=== PATIENT | female | born 1940 | race Caucasian/White ===

== ENCOUNTER 2024-05-06 08:12 | Inpatient (IN) | payer MEDICARE, BC, SELFPAY ==
[2024-05-06] VITALS (141 sets, daily range): BP systolic 56–235; BP diastolic 39–140; PULSE 61–147; RESP 11–45; TEMP 36.5–37.1; O2SAT 88–100
--- NOTE | 2024-05-06 08:17 | ECG_ITS ---
[facility] Date: 2024-05-06 Pat Name: Jennifer Shepard Department: Room: Gender: Female Consumer Analyst: : 1940 Requested By: Foreign Dean Order Number: [id number] Nicky MD: Mikie Mak M.D. Measurements Intervals [place] Rate: 138 P: 0 VT: 0 QRS: -12 QRSD: 83 T: 79 QT: 273 QTc: 415 Interpretive Statements ATRIAL FIBRILLATION WITH RAPID VENTRICULAR RESPONSE MODERATE ST DEPRESSION [0.05+ mV ST DEPRESSION] Compared to ECG 11/09/2017 13:33:48 ST (T wave) deviation now present Ectopic atrial tachycardia, multifocal no longer present Indeterminate axis no longer present Electronically Signed On 05-11-2024 18:17:57 LENS CEMENTER by Mikie Mak M.D. [id number]
--- NOTE | 2024-05-06 08:17 | XR_ITS ---
WS: [id number] XR chest 1V portable [id number] REASON FOR EXAM: dyspnea/cough FINDINGS: No examinations since 2018. Patient is significantly rotated to the right. The heart does not appear significantly enlarged. Findings of significant central lobar emphysema. Coarse interstitial and groundglass opacification of the left upper lung with air bronchograms. Patient rotation makes it is difficult to evaluate the left hilum. XR/XR chest 1V portable [id number] IMPRESSION: Left upper lobe lung opacities as above. In a patient with emphysema and likely long smoking history a better evaluation of the left hilar region needs to be considered to exclude left hilar mass wit h postobstructive pneumonitis of the left upper lobe, i.e. CT of the chest with contrast.
[2024-05-06 08:23] LABS: ABG PCO2 44.5 mmHg (35-45); Arterial Blood Gas Hematocrit 37.4 % (37-47); Base Excess ABG -10.3 mmol/L (-2.0-2.0); Blood Gas Allen Test Pos; Blood Gas Operator Identificat MONRO; Blood Gas Sample Site Radial, right; Blood Gas Sample Type Arterial; HCO3 ABG 17.4 mmol/L (22-26); HGB O2 Sat 96.2 % (95-100); Ionized Calcium Level - ABG 1.2 mmol/L (1.1-1.4); Methemoglobin 0.3 % (0.4-1.5); Oxygen Device CONT NEB; Oxygen Saturation ABG 97.4; Potassium Level - ABG 4.4 mmol/L (3.5-5.0); Total Hemoglobin 12.2 g/dL (12-16)
--- NOTE | 2024-05-06 08:42 | PC.NURSE ---
PT expressed to physician at bedside that she did not want to be intubated. Physician explained risks and PT still declined intubation.
--- NOTE | 2024-05-06 08:45 | W.ED.SOB ---
HPI - SOB/Dyspnea General: Chief Complaint: Shortness of Breath/Dyspnea Stated Complaint: SOB, Sick for 3 days Time Seen by Provider: 05/06/24 08:14 History of Present Illness: HPI Narrative: 83-year-old female presents via EMS in acute respiratory distress reported sats on her usual 3 L at 80 percentile at home. She has been sick with shortness of breath rapid heart rate exertional dyspnea chest discomfort for the last 3 days. She is tachycardic she has a productive cough she has not been vomiting anything up she denies hemoptysis. Associated symptoms: Reports chest congestion and chest pain; Deny abdominal pain or fever(s) Related Data Home Medications ?Medication ?Instructions ?Recorded ?Confirmed alendronate 35 mg tablet 35 mg PO Q7D 05/06/24 05/06/24 budesonide 160 mcg-glycopyr 9 2 inh inhalation BID 05/06/24 05/06/24 mcg-formot 4.8 mcg/actuation HFA inhaler (Breztri Aerosphere) levocetirizine 5 mg tablet 5 mg PO DAILY 05/06/24 05/06/24 levothyroxine 50 mcg tablet 50 mcg PO DAILY 05/06/24 05/06/24 meloxicam 7.5 mg tablet 7.5 mg PO DAILY 05/06/24 05/06/24 metoprolol tartrate 25 mg tablet 12.5 mg PO DAILY 05/06/24 05/06/24 montelukast 10 mg tablet 10 mg PO DAILY 05/06/24 05/06/24 prednisone 10 mg tablet 10 mg PO DAILY PRN copd 05/06/24 05/06/24 Allergies Allergy/AdvReac Type Severity Reaction Status Date / Time No Known Allergies Allergy Verified 05/06/24 08:39 Review of Systems Const: Denies: fever(s) or chills Card: Reports: chest pain Resp: Reports: productive cough, wheezing and chest congestion; Denies: dyspnea GI: Denies: abdominal pain : Denies: dysuria, urinary frequency or urinary urgency Musc: Denies: neck pain or back pain Skin/Breast: Denies: rash PFS ED PFSH: Medical History Hypertension Hypothyroidism COPD (chronic obstructive pulmonary disease) Physical Exam Const: COMMON NORMALS: no acute distress GENERAL APPEARANCE: cooperative and comfortable ORIENTATION/CONSCIOUSNESS: Yes awake, Yes oriented to person, Yes oriented to place and Yes oriented to time HENMT: COMMON NORMALS: normocephalic, atraumatic and hearing grossly normal bilaterally HEAD & SCALP: normocephalic and atraumatic Resp: EFFORT & INSPECTION: No able to speak in complete sentences, Yes tachypneic, Yes respiratory distress, Yes labored, Yes Actively coughing and Yes uses accessory muscles AUSCULTATION: rhonchi, wheezes and diminished lung sounds Cardio: COMMON NORMALS: No murmurs present (Cardio) RATE: tachycardic RHYTHM: abnormal rhythm irregularly irregular GI: COMMON NORMALS: Soft to palpation and No hepatosplenomegaly present AUSCULTATION: Yes normoactive bowel sounds PALPATION: Yes Soft to palpation, No Tenderness to palpation present (GI), No Guarding due to palpation present (GI) and Yes No hepatosplenomegaly present Extremity: NARRATIVE EXTREMITY EXAM: Mild extremities Neuro: SENSORIUM/ORIENTATION: Yes oriented to person, Yes oriented to place and Yes oriented to time Skin: COMMON NORMALS: no rashes or lesions noted GENERAL SKIN EXAM: no rashes or lesions noted Course Vital Signs: Vital signs: Vital Signs Temperature 96.7 F L 05/07/24 12:00 Pulse Rate 0 L 05/07/24 15:15 Respiratory Rate 16 05/07/24 15:15 Blood Pressure 117/66 05/07/24 14:15 Pulse Oximetry 88 L 05/07/24 14:15 Oxygen Delivery Me thod BiPAP 05/07/24 13:05 Fraction of Inspir ed Oxygen 60 05/07/24 13:10 MDM - SOB/Dyspnea Medical Decision Making With nurse present discussion regarding intubation patient declines intubation she expresses understanding that without it she may not pass away despite this she wishes only to have BiPAP and does not wish to be intubated. Sepsis bolus given however was adjusted to ideal body weight. Because of her current A-fib if she is given excess fluids she will develop congestive heart failure which will complicate her care. I do not believe is medically safe at this time to give the full 30 mL/kg bolus discussed with hospitalist. Will admit Her condition is very guarded. Medical Records I reviewed the patient's medical records. Lab Data I reviewed the patient's lab results. 05/07/24 04:31 05/07/24 04:31 Labs/Radiology: Radiology Impressions Chest X-Ray 05/06/24 08:17 IMPRESSION: Left upper lobe lung opacities as above. In a patient with emphysema and likely long smoking history a better evaluation of the left hilar region needs to be considered to exclude left hilar mass with postobstructive pneumonitis of the left upper lobe, i.e. CT of the chest with contrast. Chest CTA 05/06/24 09:56 IMPRESSION: There is dense airspace consolidation in the left upper lobe which may represent a postobstructive pneumonitis with a central primary lung neoplasm. This will likely need confirmation with bronchoscopy. Laboratory Results WBC 19.43 10^3/uL (3.29-11.43) H 05/06/24 08:39 RBC 4.01 10^6/uL (3.85-5.65) 05/06/24 08:39 Hgb 12.60 g/dL (11.27-16.99) 05/06/24 08:39 Hct 40.6 % (36-47) 05/06/24 08:39 MCV 101.2 fl (85-98) H 05/06/24 08:39 MCH 31.4 pg (27-33) 05/06/24 08:39 MCHC 31.0 g/dL (30-55) 05/06/24 08:39 RDW 12.9 % (12.1-15.1) 05/06/24 08:39 Plt Count 304 10^3/cmm (157-399) 05/06/24 08:39 MPV 11.1 fL (7.4-10.4) H 05/06/24 08:39 Lymph % (Auto) Not Reportable 05/06/24 08:39 [place] % (Auto) Not Reportable 05/06/24 08:39 Lymph # (Auto) Not Reportable 05/06/24 08:39 [place] # (Auto) Not Reportable 05/06/24 08:39 Total Counted 100 (0-100) 05/06/24 08:39 Atypical Lymphs % 0.0 % (0-5) 05/06/24 08:39 Absolute Neutrophils 17.3 10^3/cmm (1.4-6.5) H 05/06/24 08:39 Segmented Neutrophils 75 % 05/06/24 08:39 Band Neutrophils 14.0 % 05/06/24 08:39 Absolute Lymphocytes 0.8 10^3/cmm (1.2-3.4) L 05/06/24 08:39 Lymphocytes (Manual) 4 % 05/06/24 08:39 Monocytes (Manual) 5.0 % 05/06/24 08:39 Absolute Monocytes 1.0 10^3/cmm (0.1-0.6) H 05/06/24 08:39 Eosinophils (Manual) 0 % 05/06/24 08:39 Absolute Eosinophils 0.0 10^3/cmm (0.0-0.7) 05/06/24 08:39 Basophils (Manual) 0.0 % 05/06/24 08:39 Absolute Basophils 0.0 10^3/cmm (0.0-0.2) 05/06/24 08:39 Myelocytes 2.0 % 05/06/24 08:39 Platelet Estimate Normal (Normal) 05/06/24 08:39 Anisocytosis 1+ H 05/06/24 08:39 Specimen Type Arterial 05/06/24 10:24 Sample Site Radial, right 05/06/24 10:24 ABG pH 7.13 (7.35-7.45) L* 05/06/24 10:24 ABG pCO2 34.9 mmHg (35-45) L 05/06/24 10:24 ABG pO2 97.4 mmHg (80.0-100.0) 05/06/24 10:24 ABG PO2/FiO2 Ratio 216 05/06/24 10:24 ABG HCO3 11.7 mmol/L (22-26) L 05/06/24 10:24 ABG O2 Saturation 95.8 05/06/24 10:24 ABG Base Excess -16.4 mmol/L (-2.0-2.0) L 05/06/24 10:24 Stanislaw Test Pos 05/06/24 10:24 A-a O2 Gradient 23.3 mmHg (5-10) H 05/06/24 10:24 Hematocrit 36.5 % (37-47) L 05/06/24 10:24 Hgb O2 Saturation 94.6 % (95-100) L 05/06/24 10:24 Carboxyhemoglobin 1.0 %THgb (0.4-20.1) 05/06/24 10:24 Methemoglobin 0.3 % (0.4-1.5) L 05/06/24 10:24 Total Hemoglobin 11.9 g/dL (12-16) L 05/06/24 10:24 Sodium 132.0 mmol/L (131-143) 05/06/24 10:24 Potassium 4.2 mmol/L (3.5-5.0) 05/06/24 10:24 Glucose 338.0 mg/dL (70-115) H 05/06/24 10:24 Ionized Calcium 1.2 mmol/L (1.1-1.4) 05/06/24 10:24 O2 Delivery Device Bipap 05/06/24 10:24 O2 Liters/Min 8.0 % 05/06/24 08:13 FiO2 45.0 % 05/06/24 10:24 Poultry Cleaner ID [place]ro 05/06/24 10:24 Sodium 131 mmol/L (136-145) L 05/06/24 08:39 Potassium 4.9 mmol/L (3.5-5.1) 05/06/24 08:39 Chloride 90 mmol/L (98-107) L 05/06/24 08:39 Carbon Dioxide 14 mmol/L (22-29) L 05/06/24 08:39 Anion Gap 31.9 (5-19) H 05/06/24 08:39 BUN 45 mg/dL (8-23) H 05/06/24 08:39 Creatinine 1.7 mg/dL (0.5-0.9) H 05/06/24 08:39 GFR Calculation Not Reportable 05/06/24 08:39 Glucose 336 mg/dL (65-115) H 05/06/24 08:39 Calculated Osmolality 297 mOsm/kg (285-295) H 05/06/24 08:39 Lactic Acid 6.0 mmol/L (0.5-2.2) H* 05/06/24 08:39 Calcium 9.7 mg/dL (8.5-10.5) 05/06/24 08:39 Total Bilirubin 1.0 mg/dL (0.15-1.2) 05/06/24 08:39 AST 116 U/L (0-32) H 05/06/24 08:39 ALT 62 U/L (0-33) H 05/06/24 08:39 Alkaline Phosphatase 66 U/L (35-105) 05/06/24 08:39 Troponin T Baseline 37 ng/L (0-10) H 05/06/24 08:39 Troponin T 120 Minute 40.09 ng/L (0-10) H 05/06/24 10:43 Delta Troponin T 3.09 ABS# (0-10) 05/06/24 10:43 Total Protein 5.2 g/dL (6.6-8.7) L 05/06/24 08:39 Albumin 2.5 g/dL (3.5-5.2) L 05/06/24 08:39 Globulin 2.7 g/dL (1.3-4.6) 05/06/24 08:39 TSH 0.94 uIU/mL (0.27-4.20) 05/06/24 08:39 Urine Color Yellow (Yellow) 05/06/24 09:10 Urine Appearance Cloudy (CLEAR) A 05/06/24 09:10 Urine pH 5.0 (5-7) 05/06/24 09:10 Ur Specific Grethel 1.021 (1.005-1.030) 05/06/24 09:10 Urine Protein 2+ (Negative) A 05/06/24 09:10 Urine Glucose (UA) 2+ (Normal) H 05/06/24 09:10 Urine Ketones 1+ (Negative) H 05/06/24 09:10 Urine Blood Trace (Negative) A 05/06/24 09:10 Urine Nitrate Negative (Negative) 05/06/24 09:10 Urine Bilirubin Negative (Negative) 05/06/24 09:10 Urine Urobilinogen 1.0 mg/dL (Negative) 05/06/24 09:10 Ur Leukocyte Esterase Negative (Negative) 05/06/24 09:10 Urine RBC 0-4 /hpf (0-2) H 05/06/24 09:10 Urine WBC Rare /hpf (0-5) 05/06/24 09:10 Ur Squamous Epith Cells 0-4 /hpf (0-5) H 05/06/24 09:10 Amorphous Sediment 2+ /hpf 05/06/24 09:10 Urine Bacteria 1+ /hpf (NONE) H 05/06/24 09:10 Hyaline Casts 0-4 /lpf H 05/06/24 09:10 Coarse Granular Casts 0-4 /lpf H 05/06/24 09:10 Urine Mucus Trace /hpf 05/06/24 09:10 Serum Ketones Negative (Negative) 05/06/24 08:39 Influenza A (PCR) Negative (Negative) 05/06/24 09:08 Influenza Type B (PCR) Negative (Negative) 05/06/24 09:08 RSV (PCR) Negative (Negative) 05/06/24 09:08 SARS-CoV-2 (PCR) Negative (Negative) 05/06/24 09:08 All radiology interpretation(s) finalized by discharge Critical Care Time Critical Care Time: Critical Care Time: Yes Total Critical Care Time: 45 Attestation: The high probability of a clinically significant, sudden or life threatening deterioration of the patient's cardiovascular respiratory renal system(s) required my full and direct attention, intervention and personal management. The critical care time is as shown. This time is in addition to time spent performing any reported procedures but includes the following: [x] Data and vital sign review and interpretation [x] Patient assessment, examination and intervention [x] Documentation [x] Medication orders and management Discharge Plan Discharge Patient Disposition: Admitted As Inpatient Admit Provider: Anderson Lopez Clinical Impression: Pneumonia, Mass of upper lobe of left lung, Septic shock, Respiratory failure, Metabolic acidosis, COPD (chronic obstructive pulmonary disease), Hyperglycemia Condition: Coding Level of Care Code ED Commission Associate for Carlo sAlberto Chong
[2024-05-06] MEDS: dilTIAZem 5 mg/mL SDV 5 mL 10 MG IVP (09:02)
[2024-05-06] MEDS: dilTIAZem 100 MG in sodium chloride 0.9% (add-van) 100 ML IV (09:07)
[2024-05-06] MEDS: piperacillin-tazobactam 3.375 GM in sodium chloride 0.9% (plus) 50 ML IV ×2 (09:08→16:46)
[2024-05-06 09:19] LABS: Hematocrit 40.6 % (36-47); Mean Corpuscular Hemoglobin 31.4 pg (27-33); Mean Corpuscular Volume 101.2 fl (85-98); Mean Platelet Volume 11.1 fL (7.4-10.4); Platelet Count 304 10^3/cmm (157-399); Red Blood Count 4.01 10^6/uL (3.85-5.65); Red Cell Distribution Width 12.9 % (12.1-15.1); White Blood Count 19.43 10^3/uL (3.29-11.43)
[2024-05-06 09:23] LABS: Bilirubin Urine Negative (Negative); Blood Urine Trace (Negative); Glucose Urine UA 2+ (Normal); Ketones Urine 1+ (Negative); Leukocyte Esterase Urine Negative (Negative); Nitrate Urine Negative (Negative); Protein Urine 2+ (Negative); Specific Gravity, Urine 1.021 (1.005-1.030); Urine Appearance Cloudy (CLEAR); Urine Color Yellow (Yellow)
[2024-05-06 09:28] LABS: Add Urine Microscopic? YES
[2024-05-06 09:34] LABS: Add Urine Culture? No; Amorphous Sediment Urine 2+ /hpf; Bacteria Urine 1+ /hpf; Coarse Granular Casts Urine 0-4 /lpf; Hyaline Casts Urine 0-4 /lpf; Mucus Urine TRACE /hpf; RBC Urine 0-4 /hpf (0-2); Squamous Epithelial Cell Urine 0-4 /hpf (0-5); WBC Urine RARE /hpf (0-5)
[2024-05-06 09:36] LABS: Alanine Aminotransferase 62 U/L (0-33); Albumin Level 2.5 g/dL (3.5-5.2); Alkaline Phosphatase 66 U/L (35-105); Aspartate Amino Transferase 116 U/L (0-32); Blood Urea Nitrogen 45 mg/dL (8-23); Calcium 9.7 mg/dL (8.5-10.5); Carbon Dioxide 14 mmol/L (22-29); Chloride 90 mmol/L (98-107); Globulin 2.7 g/dL (1.3-4.6); Glucose 336 mg/dL (65-115); Osmolality Calculated 297 mOsm/kg (285-295); Sodium 131 mmol/L (136-145); Total Protein 5.2 g/dL (6.6-8.7)
[2024-05-06 09:37] LABS: Troponin(5th) Baseline 37 ng/L (0-10)
[2024-05-06 09:41] LABS: Anion Gap 31.9 (5-19); Potassium 4.9 mmol/L (3.5-5.1)
[2024-05-06 09:51] LABS: Slide Review Slide Review Perform
[2024-05-06 09:52] LABS: Absolute Neutrophil 17.3 10^3/cmm (1.4-6.5); Absolute Segmented Neutrophil 14.6 10/cmm (1.6-7.1); Band Neutrophils Absolute 2.7 10^3/cmm (0.0-1.2); Eosinophils 0 %; Lymphocytes 4 %; Lymphocytes Absolute 0.8 10^3/cmm (1.2-3.4); Platelet Estimate Normal (Normal); Segmented Neutrophils 75 %; Total Cells Counted 100 (0-100)
[2024-05-06 09:53] LABS: Anisocytosis 1+
--- NOTE | 2024-05-06 09:56 | CT_ITS ---
WS: [id number] CT angio chest PE protcl [id number] REASON FOR EXAM: Left upper lobe lung pneumonia left hilar mass TECHNIQUE: Coronal and sagittal 2-D and MIP reformations. IV CONTRAST ADMINISTERED: 71 mL of Omnipaque 350 TOTAL EXAM DLP: 287.[address] scans at [facility] use at least one of these dose optimization techniques: automated exposure control; mA and/or kV adjustment per patient size (includes targeted exams where dose is matched to clinical indication); or iterative reconstruction. COMPARISON REVIEW: A previous CT scan of the chest from 03/08/2017 was reviewed. The artifact from dense contrast in the superior vena cava and the aorta makes comparison of the mediastinum and hilar regions difficult. FINDINGS: There are small lymph nodes within the mediastinum the largest of which is 1.5 mm in diameter. There is increased soft tissue density in the left hilar region which appears to represent an infiltrative process in the left hilum with encasement of a pulmonary artery branch (s) to the left upper lobe. There may be narrowing of the left upper lobe bronchus. It is difficult to separate this abnormality from adjacent consolidated lung. There is dense airspace consolidation in the mid and posterior portions of the left upper lobe. There are multiple cystic spaces compatible with bullae and central lobar emphysema. The left lung demonstrates extensive central lobar emphysematous changes with parenchymal scarring and pleural thickening. No pleural effusions are identified. There are multiple compression deformities in the lower thoracic spine of unknown chronicity. No focal bone lesion is identified. CT/CT angio chest PE protcl [id number] IMPRESSION: There is dense airspace consolidation in the left upper lobe which may represen t a postobstructive pneumonitis with a central primary lung neoplasm. This will likely need confirmation with bronchoscopy.
[2024-05-06 09:59] LABS: Influenza A NEGATIVE (Negative); Influenza B NEGATIVE (Negative); Respiratory Syncytial Virus Ce NEGATIVE (Negative); SARS-CoV-2 PCR NEGATIVE (Negative)
--- NOTE | 2024-05-06 10:17 | ECG_ITS ---
[email or web address] Date: 2024-[facility]-06 Pat Name: Jennifer Shepard Department: Room: ICU12 Gender: Female Retread Supervisor: : 1940 Requested By: Foreign Dean Order Number: [id number] Nicky MD: Mikie Mak M.D. Measurements Intervals [place] Rate: 104 P: 0 OR: 0 QRS: -8 QRSD: 82 T: 92 QT: 332 QTc: 437 Interpretive Statements ATRIAL FIBRILLATION WITH RAPID VENTRICULAR RESPONSE LOW QRS VOLTAGE IN EXTREMITY LEADS [QRS DEFLECTION < 0.5 mV IN LIMB LEADS] NONSPECIFIC T-WAVE ABNORMALITY Compared to ECG 05/06/2024 08:27:53 Low QRS voltage now present T-wave abnormality now present ST (T wave) deviation no longer present Electronically Signed On 05-11-2024 19:49:43 ELECTRIC REFRIGERATOR PREPARER by Mikie Mak M.D. [email or web address] [id number]
[2024-05-06] MEDS: LORazepam 2 mg/mL INJ 1 mL 1 MG IVP (10:35)
[2024-05-06 10:40] LABS: ABG PCO2 34.9 mmHg (35-45); ABG PH Result 7.13 (7.35-7.45); Alveolar-Arterial Oxygen Gradi 23.3 mmHg (5-10); Arterial Blood Gas Hematocrit 36.5 % (37-47); Base Excess ABG -16.4 mmol/L (-2.0-2.0); Blood Gas Allen Test Pos; Blood Gas Operator Identificat MONRO; Blood Gas Sample Site Radial, right; Blood Gas Sample Type Arterial; HCO3 ABG 11.7 mmol/L (22-26); HGB O2 Sat 94.6 % (95-100); Ionized Calcium Level - ABG 1.2 mmol/L (1.1-1.4); Methemoglobin 0.3 % (0.4-1.5); Oxygen Device BIPAP; Oxygen Saturation ABG 95.8; PO2 ABG 97.4 mmHg (80.0-100.0); PO2 FiO2 Ratio Arterial Blood 216; Potassium Level - ABG 4.2 mmol/L (3.5-5.0); Total Hemoglobin 11.9 g/dL (12-16)
[2024-05-06 10:46] LABS: Ketone (Acetest) Serum Negative (Negative)
--- NOTE | 2024-05-06 10:57 | PM.HP ---
Providers/Chief Complaint Primary Care Provider: Brianna Juárez NP Chief Complaint: SOB, Sick for 3 days History of Present Illness 83-year-old lady living at home with her daughter with history of COPD on chronic oxygen about 2 and half liters, usually using Trelegy during the day for about 4 hours as well, although has not used it in the last several days. She has been feeling unwell for about the past 3 days, everything started initially with some allergies, but she also had an aspiration event when she was drinking reclined back, accompanied by cough. In ER she is found to be in new A-fib with RVR with tachycardia, with hypoxemia, metabolic acidosis, with lactic acidosis of 6, with leukocytosis 19.4, with tachypnea 25-45, intubation mechanical ventilation was discussed with her but she had declined, started on BiPAP. Chest x-ray with left upper lobe lung opacities, emphysema, mass not excluded. Per discussion with her daughter with whom she lives, she confirms her prior wishes with regards to goals of care and no CPR or intubation. Review of Systems General: Reports: ROS unobtainable due to medical condition and ROS unobtainable due to mental status Medications/Allergies Home Medications ?Medication ?Instructions ?Recorded ?Confirmed ?Last Taken ?Type alendronate 35 mg tablet 35 mg PO Q7D 05/06/24 05/06/24 Unknown History budesonide 160 mcg-glycopyr 9 2 inh inhalation BID 05/06/24 05/06/24 Unknown History mcg-formot 4.8 mcg/actuation HFA inhaler (Breztri Aerosphere) levocetirizine 5 mg tablet 5 mg PO DAILY 05/06/24 05/06/24 Unknown History levothyroxine 50 mcg tablet 50 mcg PO DAILY 05/06/24 05/06/24 Unknown History meloxicam 7.5 mg tablet 7.5 mg PO DAILY 05/06/24 05/06/24 Unknown History metoprolol tartrate 25 mg tablet 12.5 mg PO DAILY 05/06/24 05/06/24 Unknown History montelukast 10 mg tablet 10 mg PO DAILY 05/06/24 05/06/24 Unknown History prednisone 10 mg tablet 10 mg PO DAILY PRN copd 05/06/24 05/06/24 Unknown History Allergies Allergy/AdvReac Type Severity Reaction Status Date / Time No Known Allergies Allergy Verified 05/06/24 08:39 PFSH Acute PFSH: Medical History Hypertension Hypothyroidism COPD (chronic obstructive pulmonary disease) Vitals/I&O/Wt Last Vital Signs Temp 98.0 F 05/06/24 08:13 Pulse 126 H 05/06/24 09:45 Resp 35 H 05/06/24 09:45 BP 92/68 05/06/24 09:45 Pulse Ox 95 05/06/24 09:45 O2 Del Method BiPAP 05/06/24 09:45 FiO2 45 05/06/24 08:31 05/05/24 05/06/24 05/06/24 22:59 06:59 14:59 Intake Total 55.167 / 55.167 Balance 55.167 / 55.167 Weight last 48 hrs Weight 69.4 kg Weight 63.503 kg Physical Exam Const: ORIENTATION/CONSCIOUSNESS: Yes lethargic; not awake HENMT: COMMON NORMALS: oropharynx normal Neck/C-Spine: COMMON NORMALS: no JVD Resp: COMMON NORMALS: normal respiratory effort OTHER: Coarse breath sounds. Cardio: COMMON NORMALS: no JVD, regular rhythm, S1 normal heart sound present, S2 normal heart sound present and No murmurs present (Cardio) RHYTHM: regular rhythm HEART SOUNDS: S1 normal heart sound present and S2 normal heart sound present GI: COMMON NORMALS: Normal to inspection, nondistended, normoactive bowel sounds present, Soft to palpation and non-tender PALPATION: Yes Soft to palpation Extremity: COMMON NORMALS: no joint enlargement and no pedal edema Neuro: COMMON NORMALS: patient oriented x3 and moves all extremities SENSORIUM/ORIENTATION: Yes alert Skin: COMMON NORMALS: no rashes or lesions noted GENERAL SKIN EXAM: no rashes or lesions noted Urinary Catheter Management: Breaux: Cath Placed During This Visit: yes Urinary Catheter Date of Insertion: 05/06/24 Urinary Catheter Time of Insertion: 09:43 Sepsis: Is patient septic: Yes Focused sepsis exam performed: Yes Focused sepsis exam: Mottling of extremities, lethargic. No cyanosis. Prolonged capillary refill. Date exam was performed: 05/06/24 Time exam was performed: 09:00 Data 05/06/24 08:39 05/06/24 08:39 Micro: Microbiology 05/06/24 08:42 Blood Culture - Preliminary Blood SPECIMEN COLLECTED 05/06/24 08:39 Blood Culture - Preliminary Blood SPECIMEN COLLECTED A&P Assessment and plan (1) Septic shock: Septic shock with respiratory failure and presentation, with tachypnea, hypoxemia, metabolic acidosis, acute encephalopathy with lethargy, with leukocytosis 19.4, tachycardia, new onset atrial fibrillation, lactic acidosis of 6, acute kidney injury, creatinine 1.7, received septic bolus. On arrival to ICU blood pressure 60/30, starting Levophed, discussing with nursing staff check NICOM. Blood cultures been collected, repeat lactic acid. Started empirically on Zosyn for possible aspiration pneumonia. Reviewed PCR influenza, COVID, RSV, negative. Continue Zosyn. Monitor for risk of cytopenia, C. difficile. PPI prophylaxis, DVT prophylaxis. N.p.o. currently due to acute metabolic encephalopathy. Once she is more alert and able to provide a sputum sample, collect for culture. Check MRSA PCR, urine bacterial antigens. Reviewed vitals, CBC, ABG, CMP, troponin, UA, serum ketones, flu, COVID, RSV PCR, chest x-ray, ER provider note, discussed with ER provider. Possible adrenal insufficiency with history of chronic intermittent prednisone dosing. Has prednisone 10 mg as needed at home for COPD. Will give hydrocortisone 100 mg every 6 hours at current time for possible adrenal crisis. Wean down steroids as tolerating. (2) Respiratory failure: Acute hypoxic respiratory failure with tachypnea, hypoxia, hypoxemia, increased work of breathing, declined intubation, consultation, as confirmed by her daughter had in accordance with her prior goals of care. Started on BiPAP. Continue BiPAP support. Treat pneumonia. Additionally cannot exclude left hilar mass. Underwent additional assessment with CTA chest, follow-up results. On my review noted left upper lobe consolidation, pneumonia, without any significant fluid or effusion, additionally some left lingular change, suspected pneumonia. I don't see any obvious PE. Pending radiologist interpretation. VTE prophylaxis. Treat pneumonia with Zosyn. Send mediastinal lymph nodes noted, follow-up radiology read. Possible aspiration pneumonia as her daughter reports she had some coughing fits when drinking water reclined, taking her medications reclined. N.p.o. for now. Will benefit from speech therapy/swallow assessment with recovery. (3) KEVIN (acute kidney injury): Her daughter denies chronic kidney disease, noted creatinine 1.7, baseline unknown. Suspect secondary to severe sepsis and septic shock as above. Received fluid resuscitation boluses. Her daughter does state that she has not eaten anything over the last 2 days. Additionally takes meloxicam at home. Discussed to avoid NSAIDs. Hold meloxicam. Monitor intake and output/urine output. Reassess kidney function. (4) Metabolic acidosis: Metabolic acidosis with lactic acidosis of 6. Repeat lactic acid. Treat severe sepsis, septic shock, pneumonia as above. Additionally with KEVIN. Hold NSAID. Received fluid resuscitation. Monitor intake and output. Reassess kidney function. (5) Hyperglycemia: Hyperglycemia without history of diabetes, blood sugar reviewed, 336. Requesting A1c. Discussed consideration of DKA with ER provider. At this time is not felt to DKA as there is suspicion explanation for significant metabolic acidosis, urine ketones are positive, serum ketones obtained and negative, beta hydroxybutyrate has not been checked, however, she additionally has not had eaten in several days, do suspect starvation ketosis. Will add subcutaneous insulin. Monitor blood glucose. Assess NICOM. Plan Hyponatremia: Sodium corrected for hyperglycemia is normal. COPD: chronically on 3.5L. Additionally usually requires Trelegy for about 4 hours a day. However, her daughter states has not worn it in the last several days. With possible component of exacerbation with coarse sounding breath sounds, with malaise, antibiotic and IV steroid as above. Monitor for risk of encephalopathy, gastritis, worsening hyperglycemia, if becomes more alert, collect sputum culture. PDMP PDMP Reviewed: Not Reviewed Attestations Medical Necessity Statement*: Admission over 2 midnights anticipated for assessment management of severe sepsis, septic shock, left lung pneumonia, with acute hypoxic respiratory failure, KEVIN, metabolic acidosis, acute metabolic encephalopathy, hyperglycemia, and a lady of advanced age with COPD requiring daily Trelegy. Coding Level of Care Code Critical Care >/= 30 minutes Critical care time (in minutes): 40 The high probability of a clinically significant, sudden or life threatening deterioration, as referenced in this documentation, required my full and direct attention, intervention and personal management. The critical care time shown is in addition to time spent performing any reported separately billable procedures and includes the following: [x] Data and vital sign review and interpretation [x] Patient assessment, examination and intervention [x] Medication orders and management [x] Patient/Family updates as able [x] Care Coordination and Documentation. Diagnoses Septic shock A41.9; R65.21 Respiratory failure J96.90 KEVIN (acute kidney injury) N17.9 Metabolic acidosis E87.20 Hyperglycemia R73.9
[2024-05-06] MEDS: insulin regular-human 100 units/1 mL 6 UNIT IVP (10:58)
[2024-05-06 11:00] LABS: Reflex Lactate Order REFLEX LACTIC ORDERD
[2024-05-06] MEDS: iohexol 350 mg/mL 500 mL Btl (per mL) IV (11:12)
[2024-05-06 11:16] LABS: Troponin 5 2HR 40.09 ng/L (0-10); Troponin 5 2HR Delta 3.09 ABS# (0-10)
[2024-05-06] MEDS: pantoprazole 40 mg SDV IVP (11:57)
[2024-05-06] MEDS: enoxaparin 40 mg/0.4 mL Syringe SUBCUT (11:57)
[2024-05-06] MEDS: norepinephrine 4 MG/250 ML BAG 7.5 MG IV (11:59)
[2024-05-06] MEDS: sodium chloride 0.9% 1,000 ML 100 ML IV ×2 (11:59→21:53)
[2024-05-06] MEDS: hydrocortisone 100 mg/2 mL SDV IVP ×3 (12:00→23:02)
[2024-05-06 13:10] LABS: Estmated Average Glucose 232; Hemoglobin A1C 9.7 % (4.0-6.0)
[2024-05-06 13:17] LABS: Lactic Acid level (Lactate) 6.7 mmol/L (0.5-2.2)
[2024-05-06] MEDS: lactated ringers 500 ML 999 ML IV (13:30)
[2024-05-06] MEDS: albumin 50 G/200 ML BAG 60 G IV (13:31)
[2024-05-06 13:45] LABS: Thyroid Stimulating Hormone 0.94 uIU/mL (0.27-4.20)
--- NOTE | 2024-05-06 14:17 | ECG_ITS ---
[facility]: 2024[facility]06 Pat Name: Jennifer Shepard Department: Room: ICU12 Gender: Female Film Crew Member: : 1940 Requested By: Foreign Dean Order Number: [id number] Nicky MD: Mikie Mak M.D. Measurements Intervals [place] Rate: 113 P: 0 AL: 0 QRS: 7 QRSD: 74 T: 95 QT: 321 QTc: 441 Interpretive Statements ATRIAL FIBRILLATION WITH RAPID VENTRICULAR RESPONSE WITH ABERRANT CONDUCTION OR VENTRICULAR PREMATURE COMPLEXES NONSPECIFIC T-WAVE ABNORMALITY Compared to ECG 05/06/2024 13:09:00 Ventricular premature complex(es) now present Aberrant conduction of supraventricular beat(s) now present T-wave abnormality still present Electronically Signed On 05-11-2024 19:48:55 LATHE OPERATOR CONTACT LENS by Mikie Mak M.D. [email or web address]
[2024-05-06] MEDS: ipratropium-albuterol 3 mL Neb INHALATION ×2 (14:19→20:57)
[2024-05-06 17:08] LABS: Glucose Point of Care 327 mg/dL (70-110)
[2024-05-06] MEDS: insulin lispro 100 unit/1 mL SUBCUT ×2 (17:10→20:57)
[2024-05-06 17:21] LABS: Troponin 5 6HR 32.63 ng/L (0-10)
[2024-05-06 17:27] LABS: Troponin 5 6HR Delta -4.37 ng/L (0-12)
[2024-05-06] MEDS: dexmedeTOMIDine 0.9 % NaCL 400 MCG/100 ML PREMIX IV (18:11)
--- NOTE | 2024-05-06 19:32 | PC.NURSE ---
MAR corrected to reflect current drips at shift change. Cardizem not running, Precedex running at 0.2mcg/kg/hr.
--- NOTE | 2024-05-06 20:43 | PC.NURSE ---
Patient removed right IV line. Nurse attempted education and reorientation.
[2024-05-06 21:01] LABS: Glucose Point of Care 253 mg/dL (70-110)
[2024-05-07] VITALS (73 sets, daily range): BP systolic 69–169; BP diastolic 48–93; PULSE 0–149; RESP 0–39; TEMP 35.9–36.8; O2SAT 73–96
--- NOTE | 2024-05-07 00:24 | PC.NURSE ---
Spoke with Dr. Glass in reference to patient's rapidly declining MAP, currently 69/48 and titrating up levophed currently at 10. Received order for 500mL NS bolus.
[2024-05-07] MEDS: sodium chloride 0.9% 500 ML 999 ML IV (00:35)
[2024-05-07] MEDS: piperacillin-tazobactam 3.375 GM in sodium chloride 0.9% (plus) 50 ML IV ×2 (00:42→08:38)
[2024-05-07 01:16] LABS: Glucose Point of Care 166 mg/dL (70-110)
--- NOTE | 2024-05-07 01:56 | PC.NURSE ---
Spoke with Dr. Glass in reference to patient's heart rate at 130-150 range, afib. Received orders for 150mg amiodarone IVP, 10 minute push, and continue with amiodarone drip. DC precedex drip.
--- NOTE | 2024-05-07 01:58 | PM.MISC ---
Miscellaneous Note Purpose of Documentation: Patient went into A-fib with RVR heart rate in the 140s, blood pressure is low, I have asked nurse to discontinue Precedex Amiodarone very slow push 150 mg Then start amiodarone drip Recheck potassium and check magnesium level Patient received 40 mg of Lovenox I will add 30 mg extra to make it 70 mg to make it therapeutic
[2024-05-07] MEDS: enoxaparin 100 mg/mL Syringe 30 MG SUBCUT (02:08)
[2024-05-07] MEDS: amiodarone 150 MG/100 ML PREMIX 400 MG IV (02:08)
[2024-05-07] MEDS: norepinephrine 4 MG/250 ML BAG 52.5 MG IV ×2 (02:15→07:34)
[2024-05-07] MEDS: ipratropium-albuterol 3 mL Neb INHALATION ×3 (02:22→13:13)
[2024-05-07 03:01] LABS: Blood Urea Nitrogen 54 mg/dL (8-23); Calcium 8.3 mg/dL (8.5-10.5); Carbon Dioxide 16 mmol/L (22-29); Chloride 102 mmol/L (98-107); Glucose 192 mg/dL (65-115); Magnesium 2.7 mg/dL (1.7-2.3); Osmolality Calculated 302 mOsm/kg (285-295); Sodium 136 mmol/L (136-145)
[2024-05-07 03:04] LABS: Anion Gap 21.7 (5-19); Potassium 3.7 mmol/L (3.5-5.1)
--- NOTE | 2024-05-07 03:31 | PC.NURSE ---
Spoke with patient's daughter Lyndsey for an update on patient condition. She advised she would try to be at the hospital around 9am.
[2024-05-07] MEDS: lidocaine 1% 5 ML in potassium chloride premix 100 ML 26.25 ML IV (03:50)
[2024-05-07 04:38] LABS: Basophils % 0.2 %; Eosinophils % 0.1 %; Hematocrit 35.6 % (36-47); Lymphocytes # 0.3 10^3/uL (0.8-4.8); Lymphocytes % 1.6 %; Mean Corpuscular HGB Conc 31.7 g/dL (30-55); Mean Corpuscular Hemoglobin 32.4 pg (27-33); Mean Platelet Volume 10.3 fL (7.4-10.4); Monocytes # 0.4 10^3/uL (0.2-0.9); Monocytes % 2.8 %; Neutrophils # 14.92 10^3/uL (1.8-7.7); Neutrophils % 93.9 %; Nucleated Red Blood Cells % 0.1 %; Platelet Count 272 10^3/cmm (157-399); Red Blood Count 3.49 10^6/uL (3.85-5.65); Red Cell Distribution Width 13.6 % (12.1-15.1); White Blood Count 15.88 10^3/uL (3.29-11.43)
[2024-05-07 04:56] LABS: Alanine Aminotransferase 55 U/L (0-33); Albumin Level 2.4 g/dL (3.5-5.2); Alkaline Phosphatase 43 U/L (35-105); Anion Gap 21.8 (5-19); Aspartate Amino Transferase 74 U/L (0-32); Blood Urea Nitrogen 54 mg/dL (8-23); Calcium 8.4 mg/dL (8.5-10.5); Carbon Dioxide 15 mmol/L (22-29); Chloride 104 mmol/L (98-107); Creatinine Clr Calc Pharmacy 19.1026; Globulin 3.4 g/dL (1.3-4.6); Glucose 180 mg/dL (65-115); Magnesium 2.6 mg/dL (1.7-2.3); Osmolality Calculated 303 mOsm/kg (285-295); Potassium 3.8 mmol/L (3.5-5.1); Sodium 137 mmol/L (136-145); Total Bilirubin 0.8 mg/dL (0.15-1.2); Total Protein 5.8 g/dL (6.6-8.7)
[2024-05-07 05:01] LABS: Slide Review Slide Review Perform
[2024-05-07] MEDS: morphine 4 mg/mL SDV 1 mL 2 MG IVP (05:10)
[2024-05-07] MEDS: hydrocortisone 100 mg/2 mL SDV IVP ×2 (05:11→11:23)
[2024-05-07 08:22] LABS: Glucose Point of Care 160 mg/dL (70-110)
[2024-05-07] MEDS: insulin lispro 100 unit/1 mL SUBCUT ×2 (08:38→11:26)
[2024-05-07] MEDS: dexmedeTOMIDine 0.9 % NaCL 400 MCG/100 ML PREMIX IV (10:01)
[2024-05-07 11:17] LABS: Glucose Point of Care 153 mg/dL (70-110)
[2024-05-07] MEDS: pantoprazole 40 mg SDV IVP (11:25)
[2024-05-07] MEDS: enoxaparin 30 mg/0.3 mL Syringe SUBCUT (11:26)
--- NOTE | 2024-05-07 12:38 | PC.NURSE ---
verbal order given by Dr siegel to order Precedex
[2024-05-07 13:27] LABS: MRSA PCR OZH (swab) NOT DETECTED (Not Detecte)
[2024-05-07] MEDS: norepinephrine 4 MG/250 ML BAG 60 MG IV (13:34)
--- NOTE | 2024-05-07 14:03 | P.PN_ITS ---
Subjective 2 Subjective: Restless overnight, but blood pressure is decreased, Precedex had to be discontinued. Reportedly had told staff did not want any further treatment. This morning further restless in bed, pulling off BiPAP. Vitals/I&O/Wt Last Vital Signs Temp 96.7 F L 05/07/24 12:00 Pulse 123 H 05/07/24 13:18 Resp 36 H 05/07/24 13:05 BP 108/67 05/07/24 12:00 Pulse Ox 90 05/07/24 13:10 O2 Del Method BiPAP 05/07/24 13:05 FiO2 60 05/07/24 13:10 05/06/24 05/07/24 05/07/24 22:59 06:59 14:59 Intake Total 1386.725 / 3513.892 960.515 / 4474.407 1707.415 / 1707.415 Output Total 150 / 150 Balance 1386.725 / 3513.892 810.515 / 4324.407 1707.415 / 1707.415 Weight last 48 hrs Weight 69.546 kg Weight 68.5 kg Weight 69.4 kg Weight 63.503 kg Physical Exam 2 Narrative: On subsequent visits family at bedside. Const: GENERAL APPEARANCE: lethargic ORIENTATION/CONSCIOUSNESS: Yes lethargic HENMT: COMMON NORMALS: oropharynx normal Neck/C-Spine: COMMON NORMALS: no JVD Resp: COMMON NORMALS: normal respiratory effort and clear to auscultation bilaterally AUSCULTATION: clear to auscultation bilaterally OTHER: Coarse breath sounds. Cardio: COMMON NORMALS: no JVD, regular rhythm, S1 normal heart sound present, S2 normal heart sound present and No murmurs present (Cardio) RHYTHM: regular rhythm HEART SOUNDS: S1 normal heart sound present and S2 normal heart sound present GI: COMMON NORMALS: Normal to inspection, nondistended, normoactive bowel sounds present, Soft to palpation and non-tender PALPATION: Yes Soft to palpation Extremity: COMMON NORMALS: no joint enlargement and no pedal edema Neuro: COMMON NORMALS: moves all extremities SENSORIUM/ORIENTATION: Yes lethargic Skin: COMMON NORMALS: no rashes or lesions noted GENERAL SKIN EXAM: no rashes or lesions noted OTHER: Mottling Urinary Catheter Management: Breaux: Cath Placed During This Visit: yes Reason for Continuing Indwelling Catheter: Accurate Measurement of Urinary Output in Critically Ill Patients Urinary Catheter Date of Insertion: 05/06/24 Urinary Catheter Time of Insertion: 09:43 Data 05/07/24 04:31 05/07/24 04:31 Micro: Microbiology 05/06/24 08:42 Blood Culture - Preliminary Blood NEGATIVE TO DATE 05/06/24 08:39 Blood Culture - Preliminary Blood NEGATIVE TO DATE 05/07/24 02:30 Bacterial Antigens - Final Urine Kidney 05/07/24 02:30 Legionella Urinary Antigen - Final Urine Catheterized A&P Assessment and plan (1) Septic shock: With transient improvement on pressor requirement, received additional bolus overnight, however, overnight and today with subsequent worsening in her condition, mottled skin, with further adjustment of pressors today, increasing pressor requirement up to 18 mg/min. Precedex drip restarted due to restlessness, difficulty tolerating BiPAP. Worsening encephalopathy. Continued worsening respiratory failure, continued BiPAP dependence. Worsening renal function. She has been restless, uncomfortable. Reportedly did state to staff yesterday did not want additional treatments, although has also been restless and confused. However, per discussion with her daughter she did have prior wishes for only limited attempts at treatment/resuscitation, at this time given lack of improvement, continued worsening of her condition and discomfort, on additional consideration she will be transition to comfort measures alone. BiPAP, pressors, antibiotic, stress dose steroid, amiodarone, Precedex will be discontinued. Continue supportive care, repositioning, comfort measures with opioid, benzodiazepines for any pain, discomfort, anxiety, air hunger. Family understand the duration of how long it may take for her to pass away is difficult to predict, given overall unstable condition may pass away shortly after discontinuation of supporting measures in ICU, otherwise may transfer to a room upstairs for continued comfort support. Reviewed vitals, CBC, CMP, troponin, MRSA PCR, front desk monitor, BiPAP settings. Discussed with nursing, respiratory therapist, piano case and bench assembler. (2) Respiratory failure: Complicated pneumonia with respiratory failure, unimproved respiratory failure with possible postobstructive pneumonia with possible left upper lobe mass. CTA findings were discussed with her daughter, discussion patient would not want to pursue further diagnostic or treatment measures of possible lung malignancy. (3) KEVIN (acute kidney injury): Worsening KEVIN, has produced a small amount of urine, but worsening BUN, creatinine, persistent shock. (4) Metabolic acidosis: Metabolic acidosis with lactic acidosis of 6. Repeat lactic acid. Treat severe sepsis, septic shock, pneumonia as above. Additionally with KEVIN. Hold NSAID. Received fluid resuscitation. Monitor intake and output. Reassess kidney function. (5) Hyperglycemia: Discussed with her daughter finding of diabetes, A1c of 9.3. Daughter reports longstanding history of prediabetes previously. Blood glucose has shown improvement with sliding scale insulin. Hyperglycemia without history of diabetes, blood sugar reviewed, 336. Requesting A1c. Discussed consideration of DKA with ER provider. At this time is not felt to DKA as there is suspicion explanation for significant metabolic acidosis, urine ketones are positive, serum ketones obtained and negative, beta hydroxybutyrate has not been checked, however, she additionally has not had eaten in several days, do suspect starvation ketosis. Will add subcutaneous insulin. Monitor blood glucose. Assess NICOM. Plan Hyponatremia: Resolved COPD: chronically on 3.5L. Additionally usually requires Trelegy for about 4 hours a day. However, her daughter states has not worn it in the last several days. With possible component of exacerbation with coarse sounding breath sounds, with malaise, antibiotic and IV steroid as above. Monitor for risk of encephalopathy, gastritis, worsening hyperglycemia, if becomes more alert, collect sputum culture. PDMP PDMP Reviewed: Not Reviewed Attestations 2 Medical Necessity Statement*: Continue hospitalization for assessment management of respiratory failure, complicated pneumonia, septic shock, KEVIN, metabolic acidosis, and lady with new diagnosis of diabetes, with finding of possible underlying lung malignancy, advanced age, transition to comfort care. Coding Level of Care Code Critical Care >/= 30 minutes Critical care time (in minutes): 45 The high probability of a clinically significant, sudden or life threatening deterioration, as referenced in this documentation, required my full and direct attention, intervention and personal management. The critical care time shown is in addition to time spent performing any reported separately billable procedures and includes the following: [x] Data and vital sign review and interpretation [x ] Patient assessment, examination and intervention [x] Medication orders and management [x] Patient/Family updates as able [x] Care Coordination and Documentation. Diagnoses Septic shock A41.9; R65.21 Respiratory failure J96.90 KEVIN (acute kidney injury) N17.9 Metabolic acidosis E87.20 Hyperglycemia R73.9
[2024-05-07] MEDS: morphine 4 mg/mL SDV 1 mL IVP (14:12)
[2024-05-07] MEDS: LORazepam 2 mg/mL INJ 1 mL IVP (14:42)
[2024-05-07] MEDS: morphine 10 mg/0.5 mL oral liq UD SUBLINGUAL (14:50)
--- NOTE | 2024-05-07 15:16 | PC.NURSE ---
MTS notification, MTS notified at 3018. Patient is NOT a candidate referral # [id number]. TOD 1500
--- NOTE | 2024-05-07 15:23 | PC.NURSE ---
TOD [address] Lundberg notified.
--- NOTE | 2024-05-08 03:22 | PC.NURSE ---
Saving Site Pt not candidate for Saving Site.
--- NOTE | 2024-05-08 12:53 | PM.DDS ---
Discharge Providers DDS Date of Admission: 05/06/24 11:00 Date Summary Completed: 05/08/24 Attending Provider at Admission: Anderson Lopez Time of : 15:04 Attending Provider at Discharge: Anderson Lopez Primary Care Provider: Brianna Juárez NP DS Diagnoses Hospital Diagnoses (1) Septic shock: (2) Respiratory failure: (3) KEVIN (acute kidney injury): (4) Metabolic acidosis: (5) Hyperglycemia: Reason for Visit Reason for Visit SOB, Sick for 3 days Brief History: 83-year-old lady living at home with her daughter with history of COPD on chronic oxygen about 2 and half liters, usually using Trelegy during the day for about 4 hours as well, although has not used it in the last several days. She has been feeling unwell for about the past 3 days, everything started initially with some allergies, but she also had an aspiration event when she was drinking reclined back, accompanied by cough. In ER she is found to be in new A-fib with RVR with tachycardia, with hypoxemia, metabolic acidosis, with lactic acidosis of 6, with leukocytosis 19.4, with tachypnea 25-45, intubation mechanical ventilation was discussed with her but she had declined, started on BiPAP. Chest x-ray with left upper lobe lung opacities, emphysema, mass not excluded. Per discussion with her daughter with whom she lives, she confirms her prior wishes with regards to goals of care and no CPR or intubation. Summary Date and Time of Date of : 05/07/24 Time of : 15:04 Summary Summary: She was admitted to intensive care unit with septic shock, requiring pressor support, NICOM assessment showed fluid responsive, received boluses, with acute metabolic encephalopathy some generalized weakness, lethargy, intermittent restlessness, intermittently pulling off BiPAP mask, started on Precedex drip. Continue to require BiPAP support with respiratory failure with pneumonia, possible complicated pneumonia with postobstructive etiology secondary to possible left lung malignancy finding on CTA. Has per discussion with her daughter patient would not want to undergo additional diagnostic or therapeutic measures for a condition like this. Received IV steroids with possible COPD exacerbation as well as possible adrenal insufficiency. With acute kidney injury, metabolic acidosis, NSAIDs were held, received fluid challenge, was producing urine. Renal function reassessed, and intake and output continued to be monitored. With new onset atrial fibrillation with RVR initially was treated with Cardizem, but due to hypotension which was discontinued, switched over to amiodarone drip. Received therapeutic anticoagulation. Worsening despite treatments and supportive measures with recalcitrant shock, worsening respiratory failure, worsening encephalopathy. On further discussion with patient and family further treatments for not found consistent with patient's overall prior wishes and once ready was transitioned to comfort care passing away shortly after with her family at bedside. Discharge Plan Discharge Patient Disposition: Condition: Probable Cause of Probable cause of : Cardiac arrest DS Attestations Time Spent in /Discharge Care*: greater than 30 min Quality - AMI: AMI present?: No Quality - Stroke: CVA present?: No Quality - VTE: VTE present?: No Coding Level of Care Code 49052 Total time (in minutes) for Discharge: 45 Diagnoses Septic shock A41.9; R65.21 Respiratory failure J96.90 KEVIN (acute kidney injury) N17.9 Metabolic acidosis E87.20 Hyperglycemia R73.9
== END 2024-05-07 16:50 | disposition expired | DRG 871 ==
LOC: ER 10:19 → ICU 11:01
PROVIDERS: Internal Medicine; Admitting Provider Internal Medicine; Emergency Provider Family Medicine; PCP Nurse Practitioner Family; Visit Provider Internal Medicine
DX: A41.9 Sepsis, unspecified organism (principal); G93.41 Metabolic encephalopathy; R65.21 Severe sepsis with septic shock; J96.01 Acute respiratory failure with hypoxia; J18.9 Pneumonia, unspecified organism; N17.9 Acute kidney failure, unspecified; E87.20 Acidosis, unspecified; J44.0 Chronic obstructive pulmonary disease with (acute) lower respiratory infection; J44.1 Chronic obstructive pulmonary disease with (acute) exacerbation; E87.0 Hyperosmolality and hypernatremia; I46.9 Cardiac arrest, cause unspecified; R73.9 Hyperglycemia, unspecified; I48.91 Unspecified atrial fibrillation; R91.8 Other nonspecific abnormal finding of lung field; I10 Essential (primary) hypertension; E03.9 Hypothyroidism, unspecified; Z99.81 Dependence on supplemental oxygen
CPT/HCPCS: 36415; 36416; 36600; 51702; 71045; 71275; 80048; 80051; 80053; 81001; 82009; 82330; 82805; 82962; 83036; 83605; 83735; 84443; 84484; 85007; 85025; 86403; 87040; 87449; 87637; 93005; 94640; 94660; 94664; 96365; 96366; 96367; 96372; 96374; 96375; 96376; 99291; A4222; J0283; J1650; J1720; J1815; J2060; J2270; J2470; J2543; J3480; J3490; J7030; J7120; P9046